=== PATIENT | male | born 1985 | race Caucasian/White ===

== ENCOUNTER 2021-10-26 17:27 | Emergency (ER) | payer OTHER ==
[~2021-10-26 17:27] MED LIST: ASPIR 8181 MG PO; BENTYL 20MG TAB20 MG PO; CARAFATE1 GM/10 ML PO; PROTONIX40 MG PO; ZOFRAN ODT 4 MG4 MG PO
== END 2021-10-26 19:41 | disposition left against medical advice (07) ==
LOC: ER1 17:27
DX: Z53.21 Procedure and treatment not carried out due to patient leaving prior to being seen by health care provider (principal)

== ENCOUNTER 2021-11-03 15:06 | Emergency (ER) | payer OTHER | END 2021-11-03 17:55 | disposition home or self-care (01) | LOC: ER1 15:06 | DX: S06.9X9A Unspecified intracranial injury with loss of consciousness of unspecified duration, initial encounter (principal); S01.01XA Laceration without foreign body of scalp, initial encounter; Z23 Encounter for immunization; I10 Essential (primary) hypertension; E78.5 Hyperlipidemia, unspecified; F17.200 Nicotine dependence, unspecified, uncomplicated; W28.XXXA Contact with powered lawn mower, initial encounter | CPT/HCPCS: 12001; 70450; 71045; 72125; 73552; 73562; 90471; 90715; 93005; 99285 ==